=== PATIENT | male | born 1945 | race Caucasian/White ===

== ENCOUNTER 2019-08-13 05:56 | Inpatient (IN) ==
[2019-08-13] MEDS ORDERED: ASPIRIN 325 MG TABLET PO ONE (06:00)
[2019-08-13] MEDS ORDERED: diphenhydrAMINE CAP 25 MG CAPSULE PO ONE (06:00)
[2019-08-13] MEDS ORDERED: DIAZEPAM 5 MG TABLET PO ONE (06:00)
[2019-08-13] MEDS ORDERED: MAGNESIUM SULF RIDER 2 GM in PREMIX 1 EACH IV PRN (06:00)
[2019-08-13] MEDS ORDERED: POTASSIUM CHLORIDE RIDER 10 MEQ in PREMIX 1 EACH IV PRN (06:00)
[2019-08-13] MEDS: SODIUM CHLORIDE 0.9% 1,000 ML IV SCH ×2 (06:40→21:13)
[2019-08-13 06:48] LABS: Basophils # 0.1 10*3/uL (0.0-0.2); Basophils % 0.9 % (0.0-0.8); Eosinophils # 0.3 10*3/uL (0.0-0.87); Eosinophils % 4.7 % (0.00-10.9); Hematocrit 43.2 VOL% (42.0-52.0); Immature Granulocytes % 0.4 %; Immature Granulocytes Absolute 0.02 #; Lymphocytes # 1.5 10*3/uL (1.4-4.0); Lymphocytes % 26.9 % (21.2-54.2); Mean Corpuscular HGB Conc 32.4 GM/DL (32-36); Mean Corpuscular Volume 95.6 FL (87-102); Monocytes % 9.1 % (1.7-12.7); Platelet Count 212 T/CUMM (130-400); Red Blood Count 4.52 MC/CUMM (3.8-5.5); Red Cell Distribution Width 12.3 % (9.3-17.3); White Blood Count 5.7 T/CUMM (4-12)
[2019-08-13 06:55] LABS: INR 0.9; PT Patient Result 10.1 SECS (9.6-12.2)
[2019-08-13 07:16] LABS: Albumin 3.8 G/DL (3.4-5.0); Bilirubin,Total 0.4 MG/DL (0.2-1.0); Calcium 9.1 MG/DL (8.5-10.1); Osmolality,Calculated 276.7 MOS/KG (273-304); Total Protein 7.5 G/DL (6.4-8.3)
[2019-08-13] MEDS ORDERED: DIAZEPAM 5 MG TABLET ONE (12:02)
[2019-08-13] MEDS ORDERED: diphenhydrAMINE CAP 25 MG CAPSULE ONE (12:02)
[2019-08-13] MEDS ORDERED: ASPIRIN 325 MG TABLET ONE (12:02)
[2019-08-13] MEDS ORDERED: LIDOCAINE 1% 20 ML VIAL ONE ×2 (12:17→14:53)
[2019-08-13] MEDS ORDERED: HEPARIN/NACL 0.9% 2 UNITS/ML 1,000 ML IV ONE ×2 (12:17→14:53)
[2019-08-13] MEDS ORDERED: MIDAZOLAM 2 MG/2 ML VIAL ONE ×2 (12:41→15:21)
[2019-08-13] MEDS ORDERED: HYDROmorphone 2 MG/1 ML VIAL ONE ×2 (12:41→15:21)
[2019-08-13] MEDS ORDERED: NITROGLYCERIN SL 0.4 MG TABLET SL PRN (16:35)
[2019-08-13] MEDS ORDERED: ONDANSETRON 4 MG/2 ML VIAL IV PRN (16:35)
[2019-08-13] MEDS ORDERED: INFLUENZA VIRUS VACCINE 0.5 ML SYRINGE IM ONE (16:56)
[2019-08-13] MEDS: ATORVASTATIN 40 MG TABLET PO SCH (22:33)
[2019-08-14] MEDS: SODIUM CHLORIDE 0.9% 1,000 ML IV SCH ×4 (05:14→23:39)
[2019-08-14 06:40] LABS: Calcium 8.4 MG/DL (8.5-10.1)
[2019-08-14] MEDS: lisinopriL 10 MG TABLET PO SCH (09:14)
[2019-08-14] MEDS: METOPROLOL SUCCINATE XL 50 MG TABLET PO SCH (09:14)
[2019-08-14] MEDS: ASPIRIN EC 325 MG TABLET PO SCH (09:15)
[2019-08-14] MEDS: PANTOPRAZOLE 40 MG TABLET PO SCH (09:15)
[2019-08-14] MEDS: ATORVASTATIN 40 MG TABLET PO SCH (21:06)
[2019-08-15] MEDS: SODIUM CHLORIDE 0.9% 1,000 ML IV SCH ×2 (06:22→08:20)
[2019-08-15] MEDS: lisinopriL 10 MG TABLET PO SCH (08:16)
[2019-08-15] MEDS: ASPIRIN EC 325 MG TABLET PO SCH (08:16)
[2019-08-15] MEDS: PANTOPRAZOLE 40 MG TABLET PO SCH (08:17)
[2019-08-15] MEDS: METOPROLOL SUCCINATE XL 50 MG TABLET PO SCH (08:17)
[2019-08-15] MEDS: ATORVASTATIN 40 MG TABLET PO SCH (21:17)
[2019-08-15] MEDS: ZALEPLON 5 MG CAPSULE PO PRN (21:20)
[2019-08-16 05:49] LABS: Basophils # 0.1 10*3/uL (0.0-0.2); Basophils % 0.6 % (0.0-0.8); Eosinophils # 0.3 10*3/uL (0.0-0.87); Eosinophils % 4.2 % (0.00-10.9); Hematocrit 43.7 VOL% (42.0-52.0); Hemoglobin 14.5 GM/DL (14.0-18.0); Immature Granulocytes % 0.1 %; Immature Granulocytes Absolute 0.01 #; Lymphocytes # 1.7 10*3/uL (1.4-4.0); Lymphocytes % 21.3 % (21.2-54.2); Mean Corpuscular HGB Conc 33.2 GM/DL (32-36); Mean Corpuscular Volume 93.8 FL (87-102); Mean Platelet Volume 10.5 FL (9.6-12.0); Monocytes % 8.3 % (1.7-12.7); Neutrophils % 65.5 % (38.7-73.9); Platelet Count 236 T/CUMM (130-400); Red Blood Count 4.66 MC/CUMM (3.8-5.5); Red Cell Distribution Width 12.1 % (9.3-17.3); White Blood Count 8.1 T/CUMM (4-12)
[2019-08-16 06:05] LABS: Calcium 9.2 MG/DL (8.5-10.1)
[2019-08-16] MEDS: lisinopriL 10 MG TABLET PO SCH (08:59)
[2019-08-16] MEDS: ASPIRIN EC 325 MG TABLET PO SCH (09:00)
[2019-08-16] MEDS: METOPROLOL SUCCINATE XL 50 MG TABLET PO SCH (09:00)
[2019-08-16] MEDS: PANTOPRAZOLE 40 MG TABLET PO SCH (09:00)
[2019-08-16] MEDS: ZALEPLON 5 MG CAPSULE PO PRN (20:22)
[2019-08-16] MEDS: ATORVASTATIN 40 MG TABLET PO SCH (20:23)
[2019-08-17 07:09] LABS: Basophils % 0.6 % (0.0-0.8); Eosinophils # 0.3 10*3/uL (0.0-0.87); Eosinophils % 4.2 % (0.00-10.9); Hematocrit 39.7 VOL% (42.0-52.0); Hemoglobin 12.9 GM/DL (14.0-18.0); Immature Granulocytes % 0.3 %; Immature Granulocytes Absolute 0.02 #; Lymphocytes # 1.4 10*3/uL (1.4-4.0); Lymphocytes % 21.6 % (21.2-54.2); Mean Corpuscular HGB Conc 32.5 GM/DL (32-36); Mean Corpuscular Volume 94.3 FL (87-102); Mean Platelet Volume 10.8 FL (9.6-12.0); Monocytes % 8.3 % (1.7-12.7); Platelet Count 217 T/CUMM (130-400); Red Blood Count 4.21 MC/CUMM (3.8-5.5); Red Cell Distribution Width 12.2 % (9.3-17.3); White Blood Count 6.2 T/CUMM (4-12)
[2019-08-17 07:24] LABS: Calcium 8.9 MG/DL (8.5-10.1); Osmolality,Calculated 275.7 MOS/KG (273-304)
[2019-08-17] MEDS ORDERED: DEXTROSE 10% 250 ML BAG IV PRN (07:36)
[2019-08-17] MEDS ORDERED: GLUCAGON 1 MG VIAL IM PRN (07:36)
[2019-08-17] MEDS: lisinopriL 10 MG TABLET PO SCH (08:31)
[2019-08-17] MEDS: PANTOPRAZOLE 40 MG TABLET PO SCH (08:31)
[2019-08-17] MEDS: METOPROLOL SUCCINATE XL 50 MG TABLET PO SCH (08:31)
[2019-08-17] MEDS: ASPIRIN EC 325 MG TABLET PO SCH (08:31)
[2019-08-17 11:26] LABS: ABG Base Excess -1.7 MMOL/L (-2.5-2.5); ABG HCO3 22.3 MMOL/L (20-26); ABG PCO2 35.8 MM HG (35-48); ABG PH 7.412 (7.35-7.45); ABG PO2 91.4 MM HG (80-95); ABG TCO2 23.4 MMOL/L (23-27)
[2019-08-17] MEDS: CHLORHEXIDINE 4% SOLN 118 ML BOTTLE TOP SCH ×2 (15:51→20:25)
[2019-08-17] MEDS: ATORVASTATIN 40 MG TABLET PO SCH (20:25)
[2019-08-17] MEDS: CHLORHEXIDINE 0.12% ORAL RINSE 60 ML BOTTLE SWISH/SPIT SCH (20:25)
[2019-08-18 02:42] LABS: Basophils # 0.1 10*3/uL (0.0-0.2); Basophils % 0.7 % (0.0-0.8); Eosinophils # 0.3 10*3/uL (0.0-0.87); Eosinophils % 4.1 % (0.00-10.9); Hematocrit 40.4 VOL% (42.0-52.0); Hemoglobin 13.2 GM/DL (14.0-18.0); Immature Granulocytes % 0.4 %; Immature Granulocytes Absolute 0.03 #; Lymphocytes % 27.7 % (21.2-54.2); Mean Corpuscular HGB Conc 32.7 GM/DL (32-36); Mean Corpuscular Volume 93.3 FL (87-102); Mean Platelet Volume 10.5 FL (9.6-12.0); Monocytes % 9.9 % (1.7-12.7); Neutrophils % 57.2 % (38.7-73.9); Platelet Count 217 T/CUMM (130-400); Red Blood Count 4.33 MC/CUMM (3.8-5.5); Red Cell Distribution Width 12.2 % (9.3-17.3)
[2019-08-18 03:04] LABS: Osmolality,Calculated 278.5 MOS/KG (273-304)
[2019-08-18] MEDS ORDERED: CEFUROXIME INJ 1,500 MG in SODIUM CHLORIDE 0.9% 100 ML IV ONE (05:00)
[2019-08-18] MEDS ORDERED: PAPAVERINE 60 MG/2 ML VIAL ONE (05:54)
[2019-08-18] MEDS ORDERED: VANCOMYCIN 1,000 MG VIAL ONE (05:55)
[2019-08-18] MEDS ORDERED: VANCOMYCIN 500 MG VIAL ONE (05:55)
[2019-08-18] MEDS ORDERED: HEPARIN/NACL 0.9% 2 UNITS/ML 500 ML IV ONE (06:04)
[2019-08-18] MEDS ORDERED: SUFentanil 250 MCG/5 ML AMP ONE (06:04)
[2019-08-18] MEDS ORDERED: MIDAZOLAM 10 MG/2 ML VIAL ONE (06:04)
[2019-08-18] MEDS ORDERED: PHENYLEPHRINE DRIP 20 MG/250 ML PREMIX IV ONE (06:04)
[2019-08-18] MEDS ORDERED: NITROGLYCERIN DRIP 50 MG/250 ML BOTTLE IV ONE (06:05)
[2019-08-18] MEDS ORDERED: AMINOCAPROIC ACID 5,000 MG/20 ML VIAL ONE (06:05)
[2019-08-18 07:47] LABS: ABG Base Excess -0.6 MMOL/L (-2.5-2.5); ABG HCO3 23.9 MMOL/L (20-26); ABG PCO2 28.1 MM HG (35-48); ABG PH 7.492 (7.35-7.45); ABG TCO2 18.9 MMOL/L (23-27); Glucose Heart Surgery 104 MG/DL (74-106); Hematocrit Heart Surgery 37.4 PERCENT (42-52); Hemoglobin Heart Surgery 12.1 G/DL (14.0-18.0); Ionized Calcium Arterial 1.11 MMOL/L (1.21-1.46); PCO2 Patient Temp Arterial 28.1 MMHG; PH Patient Temp Arterial 7.492; Patient Temperature 37 CELCIUS; Potassium Heart/CVR 3.6 MMOL/L (3.5-5.1); Sodium Heart/CVR 137 MMOL/L (135-145)
[2019-08-18 08:21] LABS: Apearance,Urine CLEAR (Clear); Bilirubin,Urine Negative (Negative); Blood, Urine Negative (Negative); Glucose,Urine (UA) Negative (Negative); Hyaline Casts,Urine 1 /LPF (0-3); Ketones,Urine Negative (Negative); Mucus,Urine Occasional /LPF (Occasional); Nitrite,Urine Negative (Negative); Protein,Urine Negative; RBC,Urine 1 /HPF (0-4); Urine Color Yellow (Yellow); Urine Specific Gravity 1.017 (1.001-1.035); Urine Urobilinogen < 2.0 EU/DL (0.2-1.0); WBC,Urine <1 /HPF (0-6)
[2019-08-18] MEDS ORDERED: ALBUMIN 5% 12.5 GM/250 ML VIAL IV ONE (09:23)
[2019-08-18] MEDS ORDERED: PHENYLEPHRINE DRIP 40 MG/250 ML PREMIX IV ONE (09:23)
[2019-08-18] MEDS ORDERED: POTASSIUM CHLORIDE RIDER 100 ML IV ONE (09:23)
[2019-08-18] MEDS ORDERED: NITROPRUSSIDE 50 MG/2 ML VIAL ONE (09:23)
[2019-08-18 09:32] LABS: Hemoglobin Heart Surgery 8.7 G/DL (14.0-18.0); PCO2 Patient Temp Venous 29.5 MM HG; PH Patient Temp Venous 7.508; PO2 Patient Temp Venous 42.7 MM HG; Potassium Heart/CVR 4.1 MMOL/L (3.5-5.1); VBG Base Excess 0.2 MEQ/L (0-4); VBG HCO3 22.9 MEQ/L (24-28); VBG Oxygen Saturation 81.4 %; VBG PCO2 29.5 MMHG (41-51); VBG PH 7.508; VBG PO2 42.7 MMHG (17-40)
[2019-08-18 09:59] LABS: Hematocrit Heart Surgery 25.1 PERCENT (42-52); Hemoglobin Heart Surgery 8.1 G/DL (14.0-18.0); PCO2 Patient Temp Venous 27.1 MM HG; PH Patient Temp Venous 7.548; PO2 Patient Temp Venous 38.3 MM HG; Potassium Heart/CVR 4.6 MMOL/L (3.5-5.1); VBG Base Excess 1.7 MEQ/L (0-4); VBG HCO3 25.8 MEQ/L (24-28); VBG Oxygen Saturation 86.1 %; VBG PCO2 31.3 MMHG (41-51); VBG PH 7.502; VBG PO2 47.1 MMHG (17-40)
[2019-08-18] MEDS: METOPROLOL SUCCINATE XL 50 MG TABLET PO SCH (10:11)
[2019-08-18] MEDS: ASPIRIN EC 325 MG TABLET PO SCH (10:11)
[2019-08-18] MEDS: CHLORHEXIDINE 0.12% ORAL RINSE 60 ML BOTTLE SWISH/SPIT SCH ×2 (10:11→20:53)
[2019-08-18] MEDS: SODIUM CHLORIDE 0.9% 1,000 ML IV SCH (10:11)
[2019-08-18] MEDS: CHLORHEXIDINE 4% SOLN 118 ML BOTTLE TOP SCH (10:11)
[2019-08-18] MEDS: PANTOPRAZOLE 40 MG TABLET PO SCH (10:11)
[2019-08-18] MEDS: lisinopriL 10 MG TABLET PO SCH (10:11)
[2019-08-18 10:33] LABS: Hemoglobin Heart Surgery 8.7 G/DL (14.0-18.0); PH Patient Temp Venous 7.579; Potassium Heart/CVR 4.4 MMOL/L (3.5-5.1); VBG Base Excess 0.2 MEQ/L (0-4); VBG HCO3 22.7 MEQ/L (24-28); VBG Oxygen Saturation 87.7 %; VBG PCO2 28.6 MMHG (41-51); VBG PH 7.517; VBG PO2 50.3 MMHG (17-40)
[2019-08-18] MEDS ORDERED: SODIUM BICARBONATE 50 MEQ/50 ML VIAL IV ONE (10:59)
[2019-08-18] MEDS ORDERED: ALBUMIN 25% 25 GM/100 ML VIAL IV ONE (10:59)
[2019-08-18] MEDS ORDERED: MANNITOL 100 GM/500 ML BAG IV ONE (10:59)
[2019-08-18] MEDS ORDERED: PROTAMINE SULFATE 250 MG/25 ML VIAL IV ONE (10:59)
[2019-08-18] MEDS ORDERED: HEPARIN 10,000 UNIT/10 ML VIAL ONE (10:59)
[2019-08-18] MEDS ORDERED: DEXTROSE 5% KCL 20 MEQ 20 MEQ/1,000 ML BAG IV ONE (10:59)
[2019-08-18] MEDS ORDERED: LIDOCAINE 2% 5 ML VIAL ONE ×2 (10:59→12:13)
[2019-08-18] MEDS ORDERED: MAGNESIUM SULFATE 5 GM/10 ML VIAL IV ONE (10:59)
[2019-08-18] MEDS ORDERED: FUROSEMIDE 20 MG/2 ML VIAL ONE (11:00)
[2019-08-18] MEDS ORDERED: methylPREDNISolone SOD SUC 1,000 MG/8 ML VIAL ONE (11:00)
[2019-08-18 11:14] LABS: ABG Base Excess 0.1 MMOL/L (-2.5-2.5); ABG HCO3 24.5 MMOL/L (20-26); ABG Oxygen Saturation 99.7 % (95-100); ABG PCO2 34.3 MM HG (35-48); ABG TCO2 22.2 MMOL/L (23-27); Glucose Heart Surgery 242 MG/DL (74-106); Hematocrit Heart Surgery 24.4 PERCENT (42-52); Hemoglobin Heart Surgery 7.8 G/DL (14.0-18.0); Ionized Calcium Arterial 1.14 MMOL/L (1.21-1.46); PCO2 Patient Temp Arterial 34.3 MMHG; Patient Temperature 37 CELCIUS; Potassium Heart/CVR 3.4 MMOL/L (3.5-5.1); Sodium Heart/CVR 133 MMOL/L (135-145)
[2019-08-18] MEDS ORDERED: ONDANSETRON 4 MG/2 ML VIAL IV PRN (11:53)
[2019-08-18] MEDS ORDERED: CALCIUM CHLORIDE 1,000 MG/10 ML SYRINGE IV PRN (11:53)
[2019-08-18] MEDS ORDERED: PHENYLEPHRINE DRIP 40 MG/250 ML PREMIX IV PRN (11:53)
[2019-08-18] MEDS ORDERED: ACETAMINOPHEN 650 MG SUPP RECTAL PRN (11:53)
[2019-08-18] MEDS ORDERED: LACTATED RINGERS 250 ML IV PRN (11:53)
[2019-08-18] MEDS ORDERED: MIDAZOLAM 10 MG/2 ML VIAL IV PRN (11:53)
[2019-08-18] MEDS ORDERED: NITROPRUSSIDE 100 MG in DEXTROSE 5% 250 ML IV PRN (11:53)
[2019-08-18] MEDS ORDERED: MAGNESIUM SULF RIDER 2 GM in PREMIX 1 EACH IV PRN (11:53)
[2019-08-18] MEDS ORDERED: MAGNESIUM SULF RIDER 4 GM in PREMIX 1 EACH IV PRN (11:53)
[2019-08-18] MEDS ORDERED: INSULIN REGULAR 100 UNIT/ML IV ONE (11:53)
[2019-08-18] MEDS ORDERED: INSULIN REGULAR 100 UNIT/ML IV PRN (11:53)
[2019-08-18] MEDS ORDERED: DEXTROSE 10% 250 ML BAG IV PRN ×2 (11:53)
[2019-08-18] MEDS ORDERED: VECURONIUM 10 MG VIAL IV PRN ×2 (11:53)
[2019-08-18] MEDS ORDERED: CHLORHEXIDINE 4% SOLN 118 ML BOTTLE TOP PRN (11:53)
[2019-08-18] MEDS: LACTATED RINGERS 1,000 ML IV PRN ×3 (12:00→15:14)
[2019-08-18] MEDS ORDERED: SODIUM CHLORIDE 0.45% 1,000 ML IV SCH ×2 (12:00)
[2019-08-18] MEDS ORDERED: INSULIN REGULAR DRIP 100 ML IV SCH (12:00)
[2019-08-18] MEDS ORDERED: PROTAMINE SULFATE 50 MG/5 ML VIAL IV ONE ×2 (12:09→12:22)
[2019-08-18] MEDS ORDERED: CALCIUM CHLORIDE 1,000 MG/10 ML VIAL IV ONE (12:13)
[2019-08-18] MEDS ORDERED: LACTATED RINGERS 2,000 ML IV ONE (12:14)
[2019-08-18] MEDS ORDERED: ETOMIDATE 40 MG/20 ML VIAL IV ONE (12:14)
[2019-08-18] MEDS ORDERED: SEVOFLURANE 1 UNIT/15 MINUTE INH ONE (12:14)
[2019-08-18] MEDS ORDERED: SODIUM CHLORIDE 0.9% 1,000 ML IV ONE (12:14)
[2019-08-18] MEDS ORDERED: METOPROLOL TARTRATE 5 MG/5 ML VIAL IV ONE (12:14)
[2019-08-18] MEDS ORDERED: PHENYLEPHRINE 1 MG/10 ML SYRINGE IV ONE (12:14)
[2019-08-18 12:26] LABS: ABG Base Excess 0.3 MMOL/L (-2.5-2.5); ABG HCO3 23.9 MMOL/L (20-26); ABG Oxygen Saturation 98.1 % (95-100); ABG PCO2 33.3 MM HG (35-48); ABG PH 7.473 (7.35-7.45); ABG PO2 133.6 MM HG (80-95); ABG TCO2 24.9 MMOL/L (23-27); Glucose Heart Surgery 179 MG/DL (74-106); Hemoglobin Heart Surgery 7.3 G/DL (14.0-18.0); Potassium Heart/CVR 3.1 MMOL/L (3.5-5.1)
[2019-08-18 12:31] LABS: Basophils % 0.2 % (0.0-0.8); Eosinophils # 0.1 10*3/uL (0.0-0.87); Eosinophils % 0.6 % (0.00-10.9); Immature Granulocytes % 0.7 %; Immature Granulocytes Absolute 0.07 #; Lymphocytes # 1.3 10*3/uL (1.4-4.0); Lymphocytes % 12.4 % (21.2-54.2); Mean Corpuscular HGB Conc 33.3 GM/DL (32-36); Mean Corpuscular Volume 93.3 FL (87-102); Mean Platelet Volume 10.3 FL (9.6-12.0); Monocytes % 6.1 % (1.7-12.7); Platelet Count 186 T/CUMM (130-400); Red Blood Count 2.25 MC/CUMM (3.8-5.5); Red Cell Distribution Width 12.1 % (9.3-17.3); White Blood Count 10.7 T/CUMM (4-12)
[2019-08-18 12:55] LABS: CKMB % 4.2 %
[2019-08-18 12:58] LABS: Troponin I 4.86 NG/ML (0.00-0.045)
[2019-08-18 13:03] LABS: Albumin 2.8 G/DL (3.4-5.0); Bilirubin,Total 0.8 MG/DL (0.2-1.0); Calcium 8.3 MG/DL (8.5-10.1); Osmolality,Calculated 281.5 MOS/KG (273-304)
[2019-08-18] MEDS: POTASSIUM CHLORIDE RIDER 20 MEQ in PREMIX 1 EACH IV PRN ×4 (13:30→19:50)
[2019-08-18 13:41] LABS: INR 1.4; PT Patient Result 15.5 SECS (9.6-12.2); Partial Thromboplastin Time 30.3 SECS (20.8-36.0)
[2019-08-18 14:06] LABS: ABG Base Excess -0.4 MMOL/L (-2.5-2.5); ABG HCO3 22.7 MMOL/L (20-26); ABG Oxygen Saturation 98.7 % (95-100); ABG PCO2 32.1 MM HG (35-48); ABG PH 7.467 (7.35-7.45); ABG PO2 181.4 MM HG (80-95); ABG TCO2 23.7 MMOL/L (23-27); Glucose Heart Surgery 170 MG/DL (74-106); Hemoglobin Heart Surgery 11.5 G/DL (14.0-18.0); Potassium Heart/CVR 4.2 MMOL/L (3.5-5.1)
[2019-08-18] MEDS: ALBUMIN 5% 12.5 GM in PREMIX 1 EACH IV PRN ×3 (15:14→16:32)
[2019-08-18 15:36] LABS: ABG Base Excess -1.4 MMOL/L (-2.5-2.5); ABG HCO3 23.3 MMOL/L (20-26); ABG Oxygen Saturation 98.3 % (95-100); ABG PCO2 42.9 MM HG (35-48); ABG PH 7.358 (7.35-7.45); ABG TCO2 22.1 MMOL/L (23-27); Glucose Heart Surgery 200 MG/DL (74-106); Hematocrit Heart Surgery 29.6 PERCENT (42-52); Hemoglobin Heart Surgery 9.6 G/DL (14.0-18.0); Potassium Heart/CVR 3.6 MMOL/L (3.5-5.1)
[2019-08-18] MEDS: MIDAZOLAM 2 MG/2 ML VIAL IV PRN ×2 (15:45→17:52)
[2019-08-18] MEDS: MORPHINE 10 MG/1 ML VIAL IV PRN (15:49)
[2019-08-18] MEDS ORDERED: INSULIN REGULAR 100 UNIT/ML SUBCUT SCH (16:00)
[2019-08-18] MEDS: INSULIN REGULAR 100 UNIT/ML SUBCUT SCH ×2 (16:08→19:49)
[2019-08-18] MEDS: POTASSIUM CHLORIDE RIDER 10 MEQ in PREMIX 1 EACH IV PRN (16:26)
[2019-08-18 17:04] LABS: ABG Base Excess -1.5 MMOL/L (-2.5-2.5); ABG HCO3 23.2 MMOL/L (20-26); ABG PCO2 45.2 MM HG (35-48); ABG PH 7.339 (7.35-7.45); ABG TCO2 22.8 MMOL/L (23-27); Glucose Heart Surgery 185 MG/DL (74-106); Hematocrit Heart Surgery 25.1 PERCENT (42-52); Hemoglobin Heart Surgery 8.1 G/DL (14.0-18.0); Potassium Heart/CVR 4.5 MMOL/L (3.5-5.1)
[2019-08-18] MEDS: CEFUROXIME INJ 1,500 MG in SYRINGE 1 EACH IV SCH (19:16)
[2019-08-18 19:39] LABS: ABG HCO3 23.6 MMOL/L (20-26); ABG Oxygen Saturation 98.1 % (95-100); ABG PCO2 42.2 MM HG (35-48); ABG PH 7.368 (7.35-7.45); ABG PO2 99.4 MM HG (80-95); ABG TCO2 22.1 MMOL/L (23-27); Glucose Heart Surgery 183 MG/DL (74-106); Hemoglobin Heart Surgery 10.4 G/DL (14.0-18.0); Potassium Heart/CVR 4.2 MMOL/L (3.5-5.1)
[2019-08-18] MEDS ORDERED: FUROSEMIDE 40 MG/4 ML VIAL IV PRN (20:20)
[2019-08-18] MEDS ORDERED: HALOPERIDOL 5 MG/ML AMP IM ONE (20:22)
[2019-08-18 21:17] LABS: CKMB % 6.4 %
[2019-08-18] MEDS: MORPHINE 4 MG/1 ML VIAL IV PRN (22:15)
[2019-08-18 22:50] LABS: ABG Base Excess -1.2 MMOL/L (-2.5-2.5); ABG HCO3 23.4 MMOL/L (20-26); ABG Oxygen Saturation 97.6 % (95-100); ABG PCO2 39.8 MM HG (35-48); ABG PH 7.383 (7.35-7.45); ABG PO2 93.1 MM HG (80-95); ABG TCO2 21.2 MMOL/L (23-27); Glucose Heart Surgery 164 MG/DL (74-106); Hematocrit Heart Surgery 34.9 PERCENT (42-52); Hemoglobin Heart Surgery 11.3 G/DL (14.0-18.0); Potassium Heart/CVR 4.3 MMOL/L (3.5-5.1)
[2019-08-18 23:37] LABS: ABG Base Excess -1.9 MMOL/L (-2.5-2.5); ABG HCO3 22.8 MMOL/L (20-26); ABG Oxygen Saturation 97.6 % (95-100); ABG PCO2 33.7 MM HG (35-48); ABG PH 7.422 (7.35-7.45); ABG TCO2 19.7 MMOL/L (23-27); Glucose Heart Surgery 195 MG/DL (74-106); Hematocrit Heart Surgery 33.6 PERCENT (42-52); Hemoglobin Heart Surgery 10.9 G/DL (14.0-18.0)
[2019-08-19] MEDS: INSULIN REGULAR 100 UNIT/ML SUBCUT SCH ×3 (00:24→07:39)
[2019-08-19 00:36] LABS: ABG Base Excess -2.2 MMOL/L (-2.5-2.5); ABG HCO3 22.5 MMOL/L (20-26); ABG Oxygen Saturation 95.8 % (95-100); ABG PCO2 40.3 MM HG (35-48); ABG PH 7.363 (7.35-7.45); ABG PO2 78.2 MM HG (80-95); ABG TCO2 20.8 MMOL/L (23-27); Glucose Heart Surgery 212 MG/DL (74-106); Hematocrit Heart Surgery 32.6 PERCENT (42-52); Hemoglobin Heart Surgery 10.6 G/DL (14.0-18.0); Potassium Heart/CVR 4.1 MMOL/L (3.5-5.1)
[2019-08-19] MEDS: MORPHINE 10 MG/1 ML VIAL IV PRN (03:30)
[2019-08-19 03:59] LABS: ABG Base Excess -1.5 MMOL/L (-2.5-2.5); ABG Oxygen Saturation 93.9 % (95-100); ABG PCO2 37.9 MM HG (35-48); ABG PH 7.401 (7.35-7.45); ABG PO2 71.3 MM HG (80-95); ABG TCO2 24.2 MMOL/L (23-27); Glucose Heart Surgery 199 MG/DL (74-106); Hemoglobin Heart Surgery 11.1 G/DL (14.0-18.0); Potassium Heart/CVR 3.8 MMOL/L (3.5-5.1)
[2019-08-19 04:03] LABS: Basophils % 0.1 % (0.0-0.8); Hematocrit 31.3 VOL% (42.0-52.0); Hemoglobin 10.6 GM/DL (14.0-18.0); Immature Granulocytes % 0.4 %; Immature Granulocytes Absolute 0.05 #; Lymphocytes # 0.5 10*3/uL (1.4-4.0); Lymphocytes % 4.6 % (21.2-54.2); Mean Corpuscular HGB Conc 33.9 GM/DL (32-36); Mean Corpuscular Volume 88.4 FL (87-102); Mean Platelet Volume 10.6 FL (9.6-12.0); Monocytes % 7.3 % (1.7-12.7); Neutrophils % 87.6 % (38.7-73.9); Platelet Count 120 T/CUMM (130-400); Red Blood Count 3.54 MC/CUMM (3.8-5.5); Red Cell Distribution Width 14.6 % (9.3-17.3); White Blood Count 11.4 T/CUMM (4-12)
[2019-08-19] MEDS: POTASSIUM CHLORIDE RIDER 20 MEQ in PREMIX 1 EACH IV PRN (04:11)
[2019-08-19 04:25] LABS: Band Neutrophils 3 % (0-10); Lymphocytes 4 % (20-55); Platelet Estimate Normal; Segmented Neutrophils 89 % (50-85); Total Cells Counted 100
[2019-08-19 04:38] LABS: Albumin 3.6 G/DL (3.4-5.0); Bilirubin,Direct 0.23 MG/DL (0.0-0.20); Bilirubin,Total 0.8 MG/DL (0.2-1.0); CKMB % 5.9 %; Osmolality,Calculated 287.3 MOS/KG (273-304); Total Protein 5.5 G/DL (6.4-8.3)
[2019-08-19 04:42] LABS: Troponin I 21.6 NG/ML (0.00-0.045)
[2019-08-19] MEDS: POTASSIUM CHLORIDE RIDER 10 MEQ in PREMIX 1 EACH IV PRN (04:53)
[2019-08-19] MEDS: lisinopriL 10 MG TABLET PO SCH ×2 (06:25→08:28)
[2019-08-19] MEDS: METOPROLOL SUCCINATE XL 50 MG TABLET PO SCH ×2 (06:25→08:29)
[2019-08-19] MEDS: CEFUROXIME INJ 1,500 MG in SYRINGE 1 EACH IV SCH ×2 (07:40→22:41)
[2019-08-19] MEDS: MORPHINE 4 MG/1 ML VIAL IV PRN (07:43)
[2019-08-19] MEDS ORDERED: KETOROLAC 30 MG/1 ML VIAL IV PRN (08:48)
[2019-08-19] MEDS: CHLORHEXIDINE 0.12% ORAL RINSE 60 ML BOTTLE SWISH/SPIT SCH ×2 (09:22→22:34)
[2019-08-19] MEDS ORDERED: GLUCAGON 1 MG VIAL IM PRN (11:55)
[2019-08-19] MEDS ORDERED: SODIUM CHLOR 0.45% KCL 20 MEQ 20 MEQ/1,000 ML BAG IV SCH (11:55)
[2019-08-19] MEDS ORDERED: ALUMINUM/MAGNES/SIMETH MAX STR 30 ML UDCUP PO PRN (11:55)
[2019-08-19] MEDS ORDERED: MAGNESIUM HYDROXIDE SUSP 30 ML UDCUP PO PRN (11:55)
[2019-08-19] MEDS ORDERED: ACETAMINOPHEN 325 MG TABLET PO PRN (11:55)
[2019-08-19] MEDS ORDERED: ZALEPLON 5 MG CAPSULE PO PRN (11:55)
[2019-08-19] MEDS ORDERED: ONDANSETRON 4 MG/2 ML VIAL IV PRN (11:55)
[2019-08-19] MEDS ORDERED: DEXTROSE 50% 25 GM/50 ML VIAL IV PRN (11:55)
[2019-08-19] MEDS ORDERED: MAGNESIUM SULF RIDER 4 GM in PREMIX 1 EACH IV PRN (11:55)
[2019-08-19] MEDS ORDERED: MAGNESIUM SULF RIDER 2 GM in PREMIX 1 EACH IV PRN (11:55)
[2019-08-19 14:40] LABS: CKMB % 3.3 %
[2019-08-19] MEDS: oxyCODONE/ACETAMINOPHEN 5-325 MG TABLET PO PRN ×2 (14:40→22:48)
[2019-08-19] MEDS: ATORVASTATIN 40 MG TABLET PO SCH (22:34)
[2019-08-20] MEDS ORDERED: KETOROLAC 30 MG/1 ML VIAL IV PRN (05:49)
[2019-08-20] MEDS ORDERED: FUROSEMIDE 40 MG/4 ML VIAL IV ONE (06:00)
[2019-08-20 06:05] LABS: Basophils % 0.1 % (0.0-0.8); Hematocrit 30.4 VOL% (42.0-52.0); Immature Granulocytes % 0.6 %; Immature Granulocytes Absolute 0.08 #; Lymphocytes # 1.1 10*3/uL (1.4-4.0); Lymphocytes % 7.5 % (21.2-54.2); Mean Corpuscular HGB Conc 32.9 GM/DL (32-36); Mean Corpuscular Volume 89.9 FL (87-102); Mean Platelet Volume 11.8 FL (9.6-12.0); Monocytes % 6.5 % (1.7-12.7); Neutrophils % 85.3 % (38.7-73.9); Platelet Count 117 T/CUMM (130-400); Red Blood Count 3.38 MC/CUMM (3.8-5.5); Red Cell Distribution Width 14.6 % (9.3-17.3); White Blood Count 14.4 T/CUMM (4-12)
[2019-08-20 06:35] LABS: Albumin 3.5 G/DL (3.4-5.0); Albumin 3.7 G/DL (3.4-5.0); Bilirubin,Direct 0.21 MG/DL (0.0-0.20); Bilirubin,Indirect 0.7 MG/DL (0.0-1.0); Bilirubin,Total 0.9 MG/DL (0.2-1.0); CKMB % 1.4 %; Calcium 8.3 MG/DL (8.5-10.1); Osmolality,Calculated 275.8 MOS/KG (273-304); Total Protein 6.4 G/DL (6.4-8.3)
[2019-08-20 06:36] LABS: Troponin I 8.36 NG/ML (0.00-0.045)
[2019-08-20] MEDS: FERROUS SULFATE 325 MG TABLET PO SCH (08:43)
[2019-08-20] MEDS: lisinopriL 10 MG TABLET PO SCH (08:43)
[2019-08-20] MEDS: METOPROLOL SUCCINATE XL 50 MG TABLET PO SCH (08:43)
[2019-08-20] MEDS: PANTOPRAZOLE 40 MG TABLET PO SCH (08:43)
[2019-08-20] MEDS: DOCUSATE SODIUM 100 MG CAPSULE PO SCH (08:43)
[2019-08-20] MEDS: ASPIRIN EC 81 MG TABLET PO SCH (08:43)
[2019-08-20] MEDS: POTASSIUM CHLORIDE 20 MEQ TABLET PO PRN (08:43)
[2019-08-20] MEDS: CHLORHEXIDINE 0.12% ORAL RINSE 60 ML BOTTLE SWISH/SPIT SCH ×2 (08:44→21:09)
[2019-08-20] MEDS: ATORVASTATIN 40 MG TABLET PO SCH (21:08)
[2019-08-21 06:02] LABS: Basophils % 0.1 % (0.0-0.8); Eosinophils % 0.1 % (0.00-10.9); Hematocrit 30.8 VOL% (42.0-52.0); Hemoglobin 10.2 GM/DL (14.0-18.0); Immature Granulocytes % 0.8 %; Immature Granulocytes Absolute 0.08 #; Lymphocytes # 1.4 10*3/uL (1.4-4.0); Lymphocytes % 13.3 % (21.2-54.2); Mean Corpuscular HGB Conc 33.1 GM/DL (32-36); Mean Corpuscular Volume 89.8 FL (87-102); Mean Platelet Volume 11.6 FL (9.6-12.0); Monocytes % 8.6 % (1.7-12.7); Neutrophils % 77.1 % (38.7-73.9); Platelet Count 142 T/CUMM (130-400); Red Blood Count 3.43 MC/CUMM (3.8-5.5); Red Cell Distribution Width 14.2 % (9.3-17.3); White Blood Count 10.6 T/CUMM (4-12)
[2019-08-21 06:12] LABS: Albumin 3.3 G/DL (3.4-5.0); Bilirubin,Direct 0.26 MG/DL (0.0-0.20); Bilirubin,Total 1.1 MG/DL (0.2-1.0); Calcium 8.5 MG/DL (8.5-10.1); Osmolality,Calculated 276.7 MOS/KG (273-304); Total Protein 6.2 G/DL (6.4-8.3)
[2019-08-21 06:31] LABS: Alanine Aminotransferase 21 U/L (16-61); Albumin 3.4 G/DL (3.4-5.0); Alkaline Phosphatase 59 U/L (45-117); Aspartate Amino Transferase 39 U/L (0-37); Bilirubin,Indirect 0.6 MG/DL (0.0-1.0); Total Protein 6.3 G/DL (6.4-8.3)
[2019-08-21] MEDS: POTASSIUM CHLORIDE 20 MEQ TABLET PO PRN ×2 (06:35→08:38)
[2019-08-21] MEDS: oxyCODONE/ACETAMINOPHEN 5-325 MG TABLET PO PRN (06:35)
[2019-08-21] MEDS: ASPIRIN EC 81 MG TABLET PO SCH (08:38)
[2019-08-21] MEDS: CHLORHEXIDINE 0.12% ORAL RINSE 60 ML BOTTLE SWISH/SPIT SCH ×2 (08:38→22:01)
[2019-08-21] MEDS: DOCUSATE SODIUM 100 MG CAPSULE PO SCH (08:38)
[2019-08-21] MEDS: PANTOPRAZOLE 40 MG TABLET PO SCH (08:38)
[2019-08-21] MEDS: METOPROLOL SUCCINATE XL 50 MG TABLET PO SCH (08:38)
[2019-08-21] MEDS: FERROUS SULFATE 325 MG TABLET PO SCH (08:38)
[2019-08-21] MEDS: lisinopriL 10 MG TABLET PO SCH (08:38)
[2019-08-21] MEDS: ATORVASTATIN 40 MG TABLET PO SCH (21:52)
[2019-08-22] MEDS: lisinopriL 10 MG TABLET PO SCH (09:04)
[2019-08-22] MEDS: ASPIRIN EC 81 MG TABLET PO SCH (09:04)
[2019-08-22] MEDS: DOCUSATE SODIUM 100 MG CAPSULE PO SCH (09:04)
[2019-08-22] MEDS: METOPROLOL SUCCINATE XL 50 MG TABLET PO SCH (09:05)
[2019-08-22] MEDS: PANTOPRAZOLE 40 MG TABLET PO SCH (09:05)
[2019-08-22] MEDS: FERROUS SULFATE 325 MG TABLET PO SCH (09:05)
[2019-08-22] MEDS: CHLORHEXIDINE 0.12% ORAL RINSE 60 ML BOTTLE SWISH/SPIT SCH ×2 (09:05→20:50)
[2019-08-22] MEDS: ATORVASTATIN 40 MG TABLET PO SCH (20:50)
[2019-08-23 05:42] LABS: Basophils % 0.2 % (0.0-0.8); Eosinophils # 0.2 10*3/uL (0.0-0.87); Eosinophils % 2.2 % (0.00-10.9); Hematocrit 32.9 VOL% (42.0-52.0); Hemoglobin 10.7 GM/DL (14.0-18.0); Immature Granulocytes % 1.1 %; Immature Granulocytes Absolute 0.09 #; Lymphocytes # 1.5 10*3/uL (1.4-4.0); Lymphocytes % 17.6 % (21.2-54.2); Mean Corpuscular HGB Conc 32.5 GM/DL (32-36); Mean Corpuscular Volume 91.1 FL (87-102); Monocytes % 10.1 % (1.7-12.7); Neutrophils % 68.8 % (38.7-73.9); Platelet Count 192 T/CUMM (130-400); Red Blood Count 3.61 MC/CUMM (3.8-5.5); Red Cell Distribution Width 13.6 % (9.3-17.3); White Blood Count 8.3 T/CUMM (4-12)
[2019-08-23 06:02] LABS: Alanine Aminotransferase 29 U/L (16-61); Alkaline Phosphatase 60 U/L (45-117); Aspartate Amino Transferase 21 U/L (0-37); Bilirubin,Indirect 1.4 MG/DL (0.0-1.0); Blood Urea Nitrogen 20 MG/DL (7-18); Calcium 8.6 MG/DL (8.5-10.1); Estimated Glom Filtration Rate 84 ML/MIN; Glucose 99 MG/DL (74-106); Osmolality,Calculated 275.8 MOS/KG (273-304); Total Protein 6.2 G/DL (6.4-8.3)
[2019-08-23 08:36] VITALS: BP 107/81
[2019-08-23] MEDS: FERROUS SULFATE 325 MG TABLET PO SCH (09:00)
[2019-08-23] MEDS: CHLORHEXIDINE 0.12% ORAL RINSE 60 ML BOTTLE SWISH/SPIT SCH (09:00)
[2019-08-23] MEDS: ASPIRIN EC 81 MG TABLET PO SCH (09:00)
[2019-08-23] MEDS: METOPROLOL SUCCINATE XL 50 MG TABLET PO SCH (09:00)
[2019-08-23] MEDS: PANTOPRAZOLE 40 MG TABLET PO SCH (09:00)
[2019-08-23] MEDS: DOCUSATE SODIUM 100 MG CAPSULE PO SCH (09:00)
[2019-08-23] MEDS: lisinopriL 10 MG TABLET PO SCH (09:00)
== END 2019-08-23 11:00 | disposition home health service (06) | DRG 234 ==
LOC: N.CL 05:56 → N.TELEN 16:40 → N.CVR 08-18 11:42 → N.TELES 08-19 10:59
PROVIDERS: ADMIT Internal Medicine Cardiovascular Disease